=== PATIENT | male | born 1970 | race Caucasian/White ===

== ENCOUNTER 2018-03-08 11:13 | Emergency (ER) | payer OTHER, SELFPAY ==
[2018-03-08 11:14] VITALS: BP 141/86; PULSE 71; RESP 15; TEMP 36.4; O2SAT 97; BMI 21.4
--- NOTE | 2018-03-08 11:27 | EKG12_ITS ---
Test Reason : WEAKNESS Blood Pressure : / mmHG Vent. Rate : 073 BPM Atrial Rate : 073 BPM P-R Int : 134 ms QRS Dur : 090 ms QT Int : 380 ms P-R-T Axes : 065 086 049 degrees QTc Int : 418 ms Normal sinus rhythm Normal ECG Confirmed by STEVEN FERRERA ([id number]), managing editor XAVI GREGG ([id number] on 03/18/2018 6:16:03 PM Referred By: ORLIN Confirmed By:STEVEN FERRERA
--- NOTE | 2018-03-08 11:27 | CT_ITS ---
STUDY: CT BRAIN WITHOUT CONTRAST REASON FOR EXAM: Male, 47 years old. 3 day history of lightheadedness. RADIATION DOSAGE (If Supplied By Facility): CTDIvol = ( 44.99 ) mGy, DLP = ( 812.98 ) mGycm TECHNIQUE: Transaxial CT imaging of the brain was performed without administration of intravenous contrast material. Individualized dose optimization techniques were used for this CT. COMPARISON: None. FINDINGS: Normal soft tissue structures. Normal calvarium. Normal size ventricles and extra-axial spaces for the patient's age. Normal white matter tracts of the cerebral hemispheres. Normal basal ganglia and thalami. Normal brainstem. Normal cerebellum. There is no intracranial hemorrhage. There are no findings of an acute ischemic infarction. Normal visualized paranasal sinuses. CT/Brain/Head without Contrast IMPRESSION: Normal unenhanced CT scan of the brain. Electronically Signed: Carmelo Horvath MD at 12:19 EDT Tel [phone], Service support ,
--- NOTE | 2018-03-08 11:30 | NURSING ---
NO OLD EKGS
[2018-03-08 11:40] VITALS: BP 127/85; BP 128/102; BP 135/97; PULSE 71; PULSE 74; PULSE 81
[2018-03-08] MEDS: 0.9% Normal Saline 1,000 ML 1000 ML IV (11:48)
[2018-03-08 11:56] LABS: Absolute Lymphocyte Count 2.59 X10^3/ul (0.83-4.51); Absolute Neutrophil Count 8.1 X10^3/uL (2.0-7.7); Basophil# 0.05 X10^3/uL; Basophil% 0.4 % (0-1); Eosinophil# 0.07 X10^3/uL; Eosinophils% 0.6 % (0-5); Hematocrit 44.6 % (40-54); Hemoglobin 15.6 g/dl (13.0-16.5); Lymphocyte # 2.59 X10^3/ul (4.0); Lymphocyte % 21.8 % (19-41); Mean Corpuscular Hgb 32.4 pg (27.0-32.0); Mean Corpuscular Volume 92.7 fL (80-94); Mean Platelet Vol. 10.3 fl (6.2-12.0); Monocyte# 1.11 X10^3/uL; Monocyte% 9.3 % (0-10); Neutrophil # 8.05 X10^3/uL (2.7-7.7); Neutrophil % 67.7 % (47-70); Platelet Count 258 K/mm3 (150-450); RBC Distribution Width CV 13.1 % (11.6-14.6); RBC Distribution Width SD 43.4 fl (35.1-43.9); Red Blood Count 4.81 M/mm3 (4.6-6.2); White Blood Count 11.9 K/mm3 (4.4-11.0)
[2018-03-08 11:57] LABS: POSITIVE COUNT NO; POSITIVE DIFFERENTIAL NO; POSITIVE MORPHOLOGY NO
[2018-03-08 12:13] LABS: Anion Gap 8 (5-15); BUN 9 mg/dL (7-18); BUN/Creat Ratio 10.2 RATIO (10-20); Calcium,Total 8.6 mg/dL (8.5-10.1); Chloride 108 mmol/L (98-107); Creatinine, Serum 0.88 mg/dL (0.70-1.30); EST Glomerular Filtration Rate 98 mL/min (>60); Est Glom Filt Rate - Afr Amer 118 mL/min (>60); Estimated Creatinine Clearance 101.35 ml/min; Glucose 101 mg/dL (74-106); Potassium 3.9 mmol/L (3.5-5.1); Sodium Level 142 mmol/L (136-145)
[2018-03-08 12:23] VITALS: BP 123/92; PULSE 75; RESP 18; O2SAT 96
--- NOTE | 2018-03-08 12:26 | ED.VISSUMM ---
- ER Visit Summary Date of Service: 03/08/18 Chief Complaint: [Lightheaded] History of Present Illness: The patient is a 47 M [presents to the emergency department with complaint of feeling lightheaded for the last 2 days. He is somewhat foggy. Patient states that he had stomach flu twice over the last winter. Patient states that he has had about 4 episodes of diarrhea in the last 3 days that have been watery without blood in them. Patient has not had any vomiting. He denies any abdominal pain. Denies urinary symptoms. Patient has had some ringing in his ears. Patient has had vertigo in the past but he denies any vertiginous-like symptoms over the last few days. Patient denies any fevers. He denies any sick contacts. Patient denies any chest pain or shortness of breath.] Physical Examination: [HEENT-PERRLA, EOMI. Cranial nerves II through XII grossly intact. TMs clear. Mucous membranes moist. No adenopathy. Cardiovascular-regular rate and rhythm without murmur or ectopy Lungs-clear to auscultation, chest wall stable without crepitus or subcu emphysema Abdomen-normoactive bowel sounds, soft, nontender, no rebound or rigidity, no peritoneal signs. Neuro pfoz-alvskx-jhdd and heel dickerson testing within normal limits, negative Romberg, negative pronator drift, fundi benign. Hallpike maneuver did not elicit any nystagmus. Extremities-intact ?4, normal range of motion, normal pulses, atraumatic ] Test Results: [EKG obtained on arrival showed a sinus rhythm with a ventricular rate of 73 bpm with no acute ST segment changes. CBC with differential showed a slightly elevated white blood cell count of 11.9, hemoglobin 15.6, hematocrit 44.6, platelets 258. Chemistries were normal. Troponin was less than 0.015. Orthostatic vital signs were negative. CT scan of the brain without contrast was normal.] Emergency Department Course and Treatment: [Patient received a liter normal same fluid bolus.] Treatment Plan: [Patient will be given referral to primary care physician lending consultant for no doc. Patient will receive a prescription for Zofran and Antivert as needed. Given patient's complaint of intermittent vertigo and ringing in the ears it is possible patient may have M?ni?re's and will refer to ENT as well.] Disposition: [Discharged home in stable condition] Impression: [Dizziness-etiology uncertain] This note was generated with [employer] dictation software. It may contain incorrect words, spelling, and punctuation that were not noted in review of the chart prior to signing ED Disposition - Plan for ED Patient: Chief Complaint: Weakness Referrals: Care Physician,No Primary [Primary Care Provider] -
--- NOTE | 2018-03-08 12:30 | ED.DCSUM_ITS ---
- ER Visit Summary Date of Service: 03/08/18 Chief Complaint: [Lightheaded] History of Present Illness: The patient is a 47 M [presents to the emergency department with complaint of feeling lightheaded for the last 2 days. He is somewhat foggy. Patient states that he had stomach flu twice over the last winter. Patient states that he has had about 4 episodes of diarrhea in the last 3 days that have been watery without blood in them. Patient has not had any vomiting. He denies any abdominal pain. Denies urinary symptoms. Patient has had some ringing in his ears. Patient has had vertigo in the past but he denies any vertiginous-like symptoms over the last few days. Patient denies any fevers. He denies any sick contacts. Patient denies any chest pain or shortness of breath.] Physical Examination: [HEENT-PERRLA, EOMI. Cranial nerves II through XII grossly intact. TMs clear. Mucous membranes moist. No adenopathy. Cardiovascular-regular rate and rhythm without murmur or ectopy Lungs-clear to auscultation, chest wall stable without crepitus or subcu emphysema Abdomen-normoactive bowel sounds, soft, nontender, no rebound or rigidity, no peritoneal signs. Neuro mrky-tcefoq-xhoo and heel dickerson testing within normal limits, negative Romberg, negative pronator drift, fundi benign. Hallpike maneuver did not elicit any nystagmus. Extremities-intact ?4, normal range of motion, normal pulses, atraumatic ] Test Results: [EKG obtained on arrival showed a sinus rhythm with a ventricular rate of 73 bpm with no acute ST segment changes. CBC with differential showed a slightly elevated white blood cell count of 11.9, hemoglobin 15.6, hematocrit 44.6, platelets 258. Chemistries were normal. Troponin was less than 0.015. Orthostatic vital signs were negative. CT scan of the brain without contrast was normal.] Emergency Department Course and Treatment: [Patient received a liter normal same fluid bolus.] Treatment Plan: [Patient will be given referral to primary care physician workers' compensation mediator for no doc. Patient will receive a prescription for Zofran and Antivert as needed. Given patient's complaint of intermittent vertigo and ringing in the ears it is possible patient may have M?ni?re's and will refer to ENT as well.] Disposition: [Discharged home in stable condition] Impression: [Dizziness-etiology uncertain] This note was generated with [employer] dictation software. It may contain incorrect words, spelling, and punctuation that were not noted in review of the chart prior to signing ED Disposition - Plan for ED Patient: Chief Complaint: Weakness Referrals: Care Physician,No Primary [Primary Care Provider] -
--- NOTE | 2018-03-08 12:30 | ED.DEP ---
ED Disposition - Plan for ED Patient: Chief Complaint: Weakness Instructions: ED Weakness [facility], ED Dizziness [facility] Prescriptions: Ondansetron [Zofran Odt] 4 mg PO Q8H PRN PRN #10 tab PRN Reason: Nausea Meclizine HCl [Antivert] 25 mg PO 4X/DAY PRN PRN #20 tab PRN Reason: Dizziness Referrals: Care Physician,No Primary [Primary Care Provider] - Annmarie Reyes MD [STAFF PHYSICIAN] - 5-7 Days Wojciech Nixon MD [STAFF PHYSICIAN] - 5-7 Days
== END 2018-03-08 12:42 | disposition home or self-care (01) ==
PROVIDERS: Emergency Provider Emergency Medicine
DX: R42 Dizziness and giddiness (principal)
CPT/HCPCS: 70450; 80048; 84484; 85025; 93005; 96360; 99284; J7030; A4216

== ENCOUNTER 2020-11-05 15:00 | Outpatient (RCR) | payer BC, SELFPAY ==
--- NOTE | 2020-10-20 18:31 | HP.PTEVAL_ITS ---
Patient's Visit Information ANDRE MARTIN is a 50 year old M referred to Physical Therapy by FRANCES Castillo with a diagnosis of Right Shoulder and Elbow Pain. Date of Evaluation: 10/20/20 Physical Therapist: Rachelle Dickey DPT - Visit Plan Frequency: 3x /Week Duration: 4 Weeks Plan: Focus on centralization of right UE s/s, postural stability and modalities for pain relief- trial of manual traction prior to mechanical. HEP for IE: Postural correction, scap retractions seated, cervical retractions supine and seated, upper trap stretch. - Subjective Patient reports that sunday he pinched a nerve in his neck- woke up and stretched. Insious onset. Yesterday to see Sue House did an injection in the back of his shoulder yesterday. Right hand dominate. Patient reports the injection made it better- he was having a lot of pain in the pec and shoulder blade but did not stop the radiating pain down his arm. The pain radiates to the forearm which he feels is worse. No N/T in the fingers- no problems with finger dexterity or extrusion die corrector strength. This has never happened before- no neck problems. No pain in the neck but it cracks like crazy. No pain at all in the shoulder just radiates to the forearm. No SHAFER, blurred vision or dizziness. Did have x-rays on his shoulder-negative- no xrays of the cervical spine. Sleep: disturbed- hard to get comfortable- only place he feels comfortable is his back but thats not he normally sleeps- side sleeper. 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 No heavy lifting required at work. Or he is on a tow motor moving stuff around. Worst: 20/10 Agg: nothing Eases: up over his head, Best: 0/10 Getting in the car and coming here makes it hurt worse. 10-15 minutes after he gets out of the vehicle. put him on Meloxicam- has not taken it today. Pain currently in the forearm. standing up has been the worst but its better with the injection. Plans to go back to work tomorrow- no lifting or anything of that sort. Describes the pain in his arm as sharp/shooting. PMHx: none Meds: Meloxicam - Objective Posture: FH, RS- can correct with verbal cues but was unable to maintain. Observation: patient sitting in firm back chair- right elbow bent and close to body rubbing right elbow- guarding. Gait: decreased arm swing and trunk rotation. Sensation: WNL to gross touch bilateral UE and hand. ROM: seated- cervical/Shoulder/Wrist/Sports Internship: WFL no significant deviation or pain noted. Strength: Cervical Spine: 4/5, Shoulder: Right: flexion/abd: 4+/5, IR/ER: 4/5, extn: 4+/5, Elbow: 4-/5, Wrist: flexion/extn: 4-/5, Sports Internship: Right: 60, 55, 50, Left: 70, 76, 70 lbs of force. Left: Shoulder: 4+/5 throughout, Elbow: 4/5, Wrist: 4/5. Special Test: Supine chin tucks: diminished s/s, Spurlings: no change in s/s, Manual Distraction: diminished s/s. Suboccpital release: decreased symptoms. When sitting back up- did not have radiating s/s until he slumped forward posture- returned quickly but only to elbow-not to forearm. - Goals Goal 1:: Patient will be I with HEP and progression Goal Time Frame: 4-6 Weeks Goal 2:: Patient will report centalization of s/s Goal Time Frame: 4-6 Weeks Goal 3:: Patient will maintain proper posture t.o tx session to demo increased scap s/s. Goal Time Frame: 4-6 Weeks Goal 4:: Patient will report sleeping through the night for 3 days without s/s of cervical spine. Goal Time Frame: 4-6 Weeks - Rehabilitation Potential Physical Therapy Diagnosis: Patient presents with hypomobility- he has radiating s/s down the right UE, poor posture, strength and muscular endurance leading to increased pain with ADL's. Rehabilitation Potential: Good - Anticipated Interventions Patient/Client Instruction: Educate patient on: Benefits of Fitness Program Therapeutic Exercise to Include: Strength training, Endurance training, Body mechanics, Postural training, Neuromotor development, Opal Exercises, Scapular Strength/Stabilization For the Purpose of:: To improve muscle performance and motor function Manual Therapy Techniques to Include: Mobilization, Functional dry needling, Soft tissue mobilization For the Purpose of:: To improve nutrient delivery to tissue TENS: Yes Cryotherapy (ice pack, ice massage): Yes Thermo therapy (hot pack): Yes Ultrasound (thermal/non thermal): Yes Intermittent cervical traction: Yes Thank you for the opportunity to evaluate your patient. For Medicare and Medicare HMO plans, please review the plan of care and approve it. It will need to be FAXED BACK to us at [phone] for Medicare purposes. For Medicare only, by signing this I certify the plan of care. Please let me know if there are questions or concerns regarding this plan of care. Physician Signature: Date:
--- NOTE | 2020-12-13 14:00 | HP.PT.NRP ---
ANDRE MARTIN was seen in my office for initial evaluation on 10/20/20. The following Plan of Care was established for this patient: Initial Frequency: 3x /Week Initial Duration: 4 Weeks Patient/Client Instruction: Educate patient on: Benefits of Fitness Program Therapeutic Exercise to Include: Strength training, Endurance training, Body mechanics, Postural training, Neuromotor development, Opal Exercises, Scapular Strength/Stabilization For the Purpose of:: To improve muscle performance and motor function Manual Therapy Techniques to Include: Mobilization, Functional dry needling, Soft tissue mobilization For the Purpose of:: To improve nutrient delivery to tissue TENS: Yes Cryotherapy (ice pack, ice massage): Yes Thermo therapy (hot pack): Yes Ultrasound (thermal/non thermal): Yes Intermittent cervical traction: Yes This patient was last seen in our office . Pertinent comments regarding their Physical therapy will appear below: Patient has not attended physical therapy in over 30 days- at this time pt to be discharged and return to MD for further evaluation. At this point I will be discontinuing this patient from physical therapy. I would be happy to see this patient again in the future if found appropriate by the physician. Thank you! MEAGAN FerreraT
== END 2020-11-05 19:00 | disposition home or self-care (01) ==
LOC: PT 15:00
PROVIDERS: PCP Nurse Practitioner; Referring Provider Nurse Practitioner; Visit Provider Nurse Practitioner
DX: M25.571 Pain in right ankle and joints of right foot (principal); M25.521 Pain in right elbow
CPT/HCPCS: 97110; 97140; 97162